=== PATIENT | male | born 1955 | race Caucasian/White ===

== ENCOUNTER 2023-06-09 13:57 | Emergency (ER) | payer MEDICARE, OTHER, SELFPAY ==
[2023-06-09 13:57] VITALS: BMI 26.6
[2023-06-09 14:02] VITALS: BP 114/72
[2023-06-09 14:42] VITALS: BP 113/79
[2023-06-09 14:44] VITALS: BP 113/79
[2023-06-09 15:00] VITALS: BP 110/77
[2023-06-09 15:06] LABS: % Basophils 0.6 % (0-2); % Eosinophils 1.9 % (0-6); % Immature Granulocytes 0.4 % (0-0.5); % Lymphocytes 16.8 % (20.5-51.1); % Monocytes 10.6 % (1.7-9.3); % Neutrophils 69.7 % (42.2-75.2); Absolute Basophils 0.1 10^3/uL (0-0.2); Absolute Eosinophils 0.2 10^3/uL (0-0.7); Absolute Lymphocytes 1.3 10^3/uL (1.2-3.4); Absolute Monocytes 0.8 10^3/uL (0.1-0.6); Absolute Neutrophils 5.5 10^3/uL (1.4-6.5); Hematocrit 40.4 % (39.0-52.0); Hemoglobin 13.5 g/dL (13.0-18.0); Mean Corp Hgb Conc. 33.4 g/dL (33.0-37.0); Mean Corpuscular Volume 83.6 fL (80.0-94.0); Mean Platelet Volume 8.9 fL (7.4-10.4); Nucleated Red Blood Cells % 0 % (-); Platelet Count 315 10^3/uL (130-400); Red Blood Cell Count 4.83 10^6/uL (4.70-6.10); White Blood Cell Count 7.9 10^3/uL (4.8-10.8)
[2023-06-09 15:15] LABS: INR 1.07; PT 13.7 Sec (11.4-14.6)
[2023-06-09 15:16] LABS: APTT 32.3 Sec (23.4-35.0)
[2023-06-09 15:19] LABS: D-Dimer < 0.27 ug/mlFEU (0.00-0.50)
--- NOTE | 2023-06-09 15:23 | ED.GENMED ---
History of Present Illness
General
Chief Complaint: Breathing Problem
Time Seen by Provider: 06/09/23 14:58
Travel History
Have you had any contact with someone who has COVID-19?: No
Do you have any symptoms of coronavirus? Fever > 100 degrees, chills, cough, shortness of breath, sore throat, loss of taste or smell, muscle aches, or headache?: No
History of Present Illness
History of Present Illness:
HPI: Patient presents with dyspnea, lightheadedness, concern for dehydration, and has not had any chest pain nor cough. He has history of DVT/PE and Eliquis dosing recently decreased from 10 to 5 mg twice daily. When he had a blood clot in 2019 he
did have lightheadedness and some similar symptoms and came in here for further evaluation. His symptoms started approximately 8 hours ago.
EXAM:
GENERAL: Well appearing in no distress
HEENT: Slightly dry oral mucosa
CARDIOVASCULAR: No murmurs, normal heart rate and rhythm, No chest wall tenderness
PULMONARY: No respiratory distress, breath sounds are clear and equal
ABDOMEN: Soft with no peritoneal signs, no tenderness
NEUROLOGIC: Excellent strength all extremities, no coordination deficits
PSYCHIATRIC: Appropriate mental status, normal insight and judgement
EXTREMITIES: Nontender, no edema, moves all extremities equally
SKIN: No rash, no lesions
ED COURSE:
3:25 PM when I initially evaluated patient
NUMBER AND COMPLEXITY OF PROBLEMS ADDRESSED AT THE ENCOUNTER
� Chronic conditions affecting care: Has had PE in the past, had MIN in the past related to hypovolemic shock, emphysema is listed in his chart but patient denies this history�he states he smoked till 20 years ago and has a
[id number] history of smoking
� Acute Exacerbation and/or Progression of Chronic Illness: This is an acute problem
� Differential Diagnosis includes: PE, COPD CHF, pneumonia, pneumothorax, viral syndrome, bronchitis, dehydration
AMOUNT AND/OR COMPLEXITY OF DATA TO BE REVIEWED AND ANALYZED
� I performed an independent evaluation of and my interpretation is:
EKG: Sinus 94, normal axis, first-degree AV block, no significant change from 10/10/2020
CT:
X-rays: I personally reviewed x-ray, there may be some emphysematous type changes however there is no acute abnormality noted
Laboratory Studies: CBC unremarkable, D-dimer ordered from triage is less than 0.27, slightly low sodium at 130, creatinine is 1.6�she has had similar levels in the past, BMP normal
Other:
� Review of other/old records: CTAs of the chest from 2018 and 2020 were negative for PE; the patient was admitted here with hypovolemic shock in February 2019 and was found to have PE bilateral and January 2019 at [facility]
� Clinical information was obtained by an independent historian: None needed
� Prescriptions/Medications Considered but not given:
� Further testing considered but not performed:
RISK OF COMPLICATIONS AND/OR MORBIDITY OR MORTALITY OF PATIENT MANAGEMENT
� Social determinants of health affecting care: Lives at home
� Discussion with other providers:
� Escalation of care including admission/observation vs risk of discharge considered: As patient does report some concern for dehydration, will give IV fluids and patient was mildly hyponatremic along with some renal
insufficiency. Will also give a DuoNeb as there is questionable history of emphysema. On reassessment, the patient overall feels improved at 5:10 PM. He was able to get up off the stretcher without any difficulty. He feels comfortable going
home. I did inform him of the lab abnormalities. I encouraged him to follow-up with PMD. Dehydration may be a contributing factor and he tells me that he has not been drinking much over the last couple of days.
Past History
Past History
ED Past Medical History: GERD, HTN and Other (BPH, Insomnia, PE, DVT)
ED Past Surgical History: Appendectomy and Orthopedic (Dislocated ankle)
Social History
Tobacco: Non-smoker
Alcohol: Occasional
Personal:
Living: with family
Employment: Employed
Phy Exam
Physical Exam
Physical Exam:
See HPI
Scores
Heart Failure Risk
Heart Failure Risk Score: Not Applicable
Course
Orders/Labs/Results
Orders:
Orders
06/09/23 14:05
ECG [Electrocardiogram (*1)] Urgent
Reason for Study: Shortness of Breath
EKG- Treatment ONCE
06/09/23 14:49
Complete Blood Count/With Diff Urgent
Comprehensive Metabolic Panel Urgent
D-Dimer Urgent
NT-proBNP Urgent
Comment: PROBNP ADDED ON BY FLOOR 3:30PM 06-09-23
PTT Urgent
Prothrombin Time Urgent
Troponin I Urgent
06/09/23 15:31
Add On- LAB Urgent
Tests Added?: probnp
CR Chest - 2 Views Urgent
Comment:
Reason For Exam: sob
06/09/23 15:34
0.9% Sodium Chloride 1000 ml [Nss] 1,000 ml IV BOLUS
06/09/23 15:35
Ipratropium/Albuterol Sulfate [Duoneb] 3 ml INH R NOW ONE
Abnormal Lab Results
06/09/23
14:49
Absolute Monos (auto) 0.8 H 10^3/uL
(0.1-0.6)
Lymphocytes % 16.8 L %
(20.5-51.1)
Monocytes % 10.6 H %
(1.7-9.3)
Sodium 130 L mmol/L
(135-145)
BUN 21 H mg/dl
(9-20)
Creatinine 1.6 H mg/dL
(0.7-1.3)
Glucose 107 H mg/dl
(70-99)
06/09/23 14:49
06/09/23 14:49
Vital Signs
Initial and Last Documented VS:
Initial Vital Signs
Temp Pulse Resp BP Pulse Ox
98.2 F 96 20 114/72 99
06/09/23 14:02 06/09/23 14:02 06/09/23 14:02 06/09/23 14:02 06/09/23 14:02
Last Documented Vital Signs
Temp Pulse Resp BP Pulse Ox
98.2 F 84 20 110/77 100
06/09/23 14:02 06/09/23 16:00 06/09/23 16:00 06/09/23 15:00 06/09/23 15:45
*Critical Care Note
Total Time (30-74mins, 75-104mins- exclusive of procedures): Not Applicable
ED Attending Note
-
Portions of this chart may have been created with voice recognition software.� Occasional wrong word or��sound alike� substitutions may have occurred due to the inherent limitations of voice recognition software.
Discharge Plan
Departure
Patient Disposition: Home (Routine Discharge)
Date of Disposition: 06/09/23
Time of Disposition: 17:10
Patient with high blood pressure during this ER visit?: Yes
Discharge Problem:
Dehydration
Instructions: Dehydration, Adult ED
Prescriptions:
No Action
finasteride 5 MG tablet
5 mg PO QPM
esomeprazole magnesium [Nexium] 20 MG capsule,delayed release(DR/EC)
20 mg PO QPM
bupropion HCl 300 MG tablet extended release 24 hr
300 mg PO QPM
Eliquis 5 MG tablet
2.5 mg PO BID
meloxicam [Mobic] 15 mg Tablet
15 mg PO HS
Theragen Tablet
1 tab PO DAILY
dextroamphetamine-amphetamine [Adderall] 20 mg Tablet
20 mg PO DAILY
lisinopril 30 mg Tablet
30 mg PO QPM
rosuvastatin [Crestor] 10 mg Tablet
10 mg PO QPM
tamsulosin [Flomax] 0.4 mg capsule
0.4 mg PO QPM
Referrals:
Walker Fernandez, [Family Provider] -
Activity Restrictions/Additional Instructions:
Your sodium low at 130 and your creatinine was elevated at 1.6, the creatinine has been worse (higher) than this in the past and the most recent level was 1.4. Your sodium today has been below normal in the past. I would like you to follow with
your primary care doctor for reassessment. Cardiac evaluation was normal meaning no sign of heart attack, blood clots, or heart failure. Return here if worse.
Interventions
Interventions:
*Risk Screen - Suicide Last Done: 06/09/23 14:02
*General Assessment Last Done: 06/09/23 14:02
*Neglect/Abuse Screening Last Done: 06/09/23 14:02
*ED COVID-19 Vaccine History Last Done: 06/09/23 14:40
ED- Cardiac Assessment Last Done: 06/09/23 14:43
ED- Pulmonary Assessment Last Done: 06/09/23 14:43
[2023-06-09] MEDS: DUONEB 3 ML INH (15:41)
[2023-06-09] MEDS: NSS 1000 IV (15:44)
[2023-06-09 16:12] LABS: ALT (SGPT) 27 U/L (0-50); AST (SGOT) 29 U/L (17-59); Albumin 4.5 g/dl (3.5-5.0); Alkaline Phosphatase 72 U/L (38-126); Blood Urea Nitrogen 21 mg/dl (9-20); Calcium 10.1 mg/dl (8.4-10.2); Carbon Dioxide 24 mmol/L (22-30); Chloride 99 mmol/L (98-107); Estimated Creatinine Clearance 42 ml/min; Glucose 107 mg/dl (70-99); Potassium 4.9 mmol/L (3.5-5.1); Sodium 130 mmol/L (135-145); Total Bilirubin 0.9 mg/dl (0.2-1.3); Total Protein 7.7 g/dl (6.3-8.2); eGFR 46.93
[2023-06-09 16:22] LABS: NT-proBNP < 20.0 pg/ml; Troponin I < 0.012 ng/ml
[2023-06-09 17:02] VITALS: BP 121/87
== END 2023-06-09 17:43 | disposition home or self-care (01) ==
LOC: EMR 13:57
PROVIDERS: Emergency Medicine; EMERGENCY PHYSICIAN Emergency Medicine; FAMILY PHYSICIAN Internal Medicine
DX: E86.0 Dehydration (principal); K21.9 Gastro-esophageal reflux disease without esophagitis; I10 Essential (primary) hypertension; N40.0 Benign prostatic hyperplasia without lower urinary tract symptoms; G47.00 Insomnia, unspecified; E87.1 Hypo-osmolality and hyponatremia; Z86.711 Personal history of pulmonary embolism; Z86.718 Personal history of other venous thrombosis and embolism; Z90.49 Acquired absence of other specified parts of digestive tract
CPT/HCPCS: 99283; 94640; 96360; 71046; 80053; 83880; 84484; 85025; 85379; 85610; 85730; 93005

== ENCOUNTER → 2023-09-20 10:31 | Outpatient (REF) | payer MEDICARE, OTHER, SELFPAY | LOC: RCS 10:31 | PROVIDERS: ATTENDING PHYSICIAN Nurse Practitioner Family | DX: R06.02 Shortness of breath (principal) | CPT/HCPCS: 93017 ==

== ENCOUNTER 2024-12-26 03:56 | Emergency (ER) | payer MEDICARE, OTHER, SELFPAY ==
[2024-12-26] VITALS (7 sets, daily range): BP systolic 122–148; BP diastolic 78–98; BMI 23.8
--- NOTE | 2024-12-26 04:18 | ED.GENMED ---
History of Present Illness
<Frandy Pappas Jr., PA-C - Last Filed: 12/26/24 23:32>
General
Chief Complaint: Abdominal Pain
Source: patient
Exam Limitations: none
Time Seen by Provider: 12/26/24 04:04
Nursing documentation reviewed up to this point in time: agreed with
History of Present Illness
History of Present Illness:
69-year-old male with past medical history of previous DVT currently on Eliquis, hypertension presenting to the emergency department today with concerns of left lower quadrant abdominal start about 6 hours prior to arrival has been gradually
worsening. He denies any associated symptoms no nausea vomiting diarrhea constipation no fevers. He claims that he has had kidney stones in the past but this does not feel similar
Past History
<Frandy Pappas Jr., PA-C - Last Filed: 12/26/24 23:32>
Past History
ED Past Medical History: GERD, HTN and Other (BPH, Insomnia, PE, DVT)
ED Past Surgical History: Appendectomy and Orthopedic (Dislocated ankle)
Social History
Tobacco: Non-smoker
Alcohol: Occasional
Personal:
Living: with family
Employment: Employed
Review of Systems
<Frandy Pappas Jr., PA-C - Last Filed: 12/26/24 23:32>
Review of Systems
Allergies reviewed?: Yes
All Other Systems: ROS reviewed and negative except as documented in HPI and ROS
Phy Exam
<Frandy Pappas Jr., PA-C - Last Filed: 12/26/24 23:32>
Physical Exam
Physical Exam:
GENERAL: Alert , in no apparent distress
EYE: pupils equal and reactive
NECK: Supple, no significant adenopathy.
ENT: o/p clr, mmm.
CARDIAC: Regular rate and rhythm .
LUNGS: Clear breath sounds bilaterally, no acute respiratory distress, no wheezes/rales/rhonchi
ABDOMEN: Left lower quadrant abdominal pain to palpation
NEUROLOGICAL: Alert and oriented, no focal neuro deficits
SKIN: Warm and dry, skin intact.
MUSCULOSKELETAL: No edema, well perfused.
PSYCH: Normal and appropriate interaction.
Course
<Frandy Pappas Jr., [place] - Last Filed: 12/26/24 23:32>
Orders/Labs/Results
Orders:
Orders
12/26/24 04:11
CT Abd/Pel (IV only)-[facility] only Urgent
Comment:
Reason For Exam: llq pain
Ketorolac [Toradol] 15 mg IV NOW STA
12/26/24 04:22
Complete Blood Count/With Diff Urgent
Comprehensive Metabolic Panel Urgent
12/26/24 04:23
Morphine Sulfate 4 mg IV NOW STA
12/26/24 05:04
Ondansetron Injectable [Zofran] 4 mg IV NOW STA
12/26/24 05:08
0.9% Sodium Chloride 1000 ml [Nss] 1,000 ml IV BOLUS
12/26/24 05:11
HYDROmorphone [Dilaudid] 0.5 mg IV NOW STA
12/26/24 05:49
HYDROmorphone [Dilaudid] 0.5 mg IV NOW STA
12/26/24 07:30
HYDROmorphone [Dilaudid] 1 mg IV NOW STA
12/26/24 08:37
Urinalysis Reflex To Culture Urgent
Date Specimen was Collected: 12/26/24
Time Specimen was Collected: 08:09
Urine Microscopic Reflex Cult Urgent
Abnormal Lab Results
12/26/24 12/26/24
04:22 08:37
RBC 4.60 L 10^6/uL
(4.70-6.10)
Hgb 12.9 L g/dL
(13.0-18.0)
MCHC 32.8 L g/dL
(33.0-37.0)
RDW 14.6 H %
(11.5-14.5)
Absolute Monos (auto) 0.9 H 10^3/uL
(0.1-0.6)
Monocytes % 12.4 H %
(1.7-9.3)
BUN 28 H mg/dl
(9-20)
Glucose 112 H mg/dl
(70-99)
Ur Occult Blood Reflex 4+ A
(Negative)
Urine RBC 21-25 A /HPF
(0-2)
Urine Bacteria (Reflex) Few A
(Negative)
Urine Albumin (Reflex) 2+ A
(Neg - Trace)
12/26/24 04:22
12/26/24 04:22
Vital Signs
Initial and Last Documented VS:
Initial Vital Signs
Temp Pulse Resp BP Pulse Ox
97.9 F 66 20 122/78 100
12/26/24 04:00 12/26/24 04:00 12/26/24 04:00 12/26/24 04:00 12/26/24 04:00
Last Documented Vital Signs
Temp Pulse Resp BP Pulse Ox
97.9 F 109 15 141/95 96
12/26/24 04:00 12/26/24 08:00 12/26/24 08:00 12/26/24 08:00 12/26/24 08:00
<Ledy Sanderson, DO - Last Filed: 12/26/24 05:27>
Orders/Labs/Results
Orders:
Orders
12/26/24 04:11
CT Abd/Pel (IV only)-[facility] only Urgent
Comment:
Reason For Exam: llq pain
Ketorolac [Toradol] 15 mg IV NOW STA
12/26/24 04:22
Complete Blood Count/With Diff Urgent
Comprehensive Metabolic Panel Urgent
12/26/24 04:23
Morphine Sulfate 4 mg IV NOW STA
12/26/24 05:04
Ondansetron Injectable [Zofran] 4 mg IV NOW STA
12/26/24 05:08
0.9% Sodium Chloride 1000 ml [Nss] 1,000 ml IV BOLUS
12/26/24 05:11
HYDROmorphone [Dilaudid] 0.5 mg IV NOW STA
12/26/24 05:49
HYDROmorphone [Dilaudid] 0.5 mg IV NOW STA
12/26/24 07:30
HYDROmorphone [Dilaudid] 1 mg IV NOW STA
12/26/24 08:37
Urinalysis Reflex To Culture Urgent
Date Specimen was Collected: 12/26/24
Time Specimen was Collected: 08:09
Urine Microscopic Reflex Cult Urgent
Abnormal Lab Results
12/26/24 12/26/24
04:22 08:37
RBC 4.60 L 10^6/uL
(4.70-6.10)
Hgb 12.9 L g/dL
(13.0-18.0)
MCHC 32.8 L g/dL
(33.0-37.0)
RDW 14.6 H %
(11.5-14.5)
Absolute Monos (auto) 0.9 H 10^3/uL
(0.1-0.6)
Monocytes % 12.4 H %
(1.7-9.3)
BUN 28 H mg/dl
(9-20)
Glucose 112 H mg/dl
(70-99)
Ur Occult Blood Reflex 4+ A
(Negative)
Urine RBC 21-25 A /HPF
(0-2)
Urine Bacteria (Reflex) Few A
(Negative)
Urine Albumin (Reflex) 2+ A
(Neg - Trace)
12/26/24 04:22
12/26/24 04:22
Vital Signs
Initial and Last Documented VS:
Initial Vital Signs
Temp Pulse Resp BP Pulse Ox
97.9 F 66 20 122/78 100
12/26/24 04:00 12/26/24 04:00 12/26/24 04:00 12/26/24 04:00 12/26/24 04:00
Last Documented Vital Signs
Temp Pulse Resp BP Pulse Ox
97.9 F 109 15 141/95 96
12/26/24 04:00 12/26/24 08:00 12/26/24 08:00 12/26/24 08:00 12/26/24 08:00
<SHIRLEY Merlos - Last Filed: 12/26/24 08:55>
Orders/Labs/Results
Orders:
Orders
12/26/24 04:11
CT Abd/Pel (IV only)-[facility] only Urgent
Comment:
Reason For Exam: llq pain
Ketorolac [Toradol] 15 mg IV NOW STA
12/26/24 04:22
Complete Blood Count/With Diff Urgent
Comprehensive Metabolic Panel Urgent
12/26/24 04:23
Morphine Sulfate 4 mg IV NOW STA
12/26/24 05:04
Ondansetron Injectable [Zofran] 4 mg IV NOW STA
12/26/24 05:08
0.9% Sodium Chloride 1000 ml [Nss] 1,000 ml IV BOLUS
12/26/24 05:11
HYDROmorphone [Dilaudid] 0.5 mg IV NOW STA
12/26/24 05:49
HYDROmorphone [Dilaudid] 0.5 mg IV NOW STA
12/26/24 07:30
HYDROmorphone [Dilaudid] 1 mg IV NOW STA
12/26/24 08:37
Urinalysis Reflex To Culture Urgent
Date Specimen was Collected: 12/26/24
Time Specimen was Collected: 08:09
Urine Microscopic Reflex Cult Urgent
Abnormal Lab Results
12/26/24 12/26/24
04:22 08:37
RBC 4.60 L 10^6/uL
(4.70-6.10)
Hgb 12.9 L g/dL
(13.0-18.0)
MCHC 32.8 L g/dL
(33.0-37.0)
RDW 14.6 H %
(11.5-14.5)
Absolute Monos (auto) 0.9 H 10^3/uL
(0.1-0.6)
Monocytes % 12.4 H %
(1.7-9.3)
BUN 28 H mg/dl
(9-20)
Glucose 112 H mg/dl
(70-99)
Ur Occult Blood Reflex 4+ A
(Negative)
Urine RBC 21-25 A /HPF
(0-2)
Urine Bacteria (Reflex) Few A
(Negative)
Urine Albumin (Reflex) 2+ A
(Neg - Trace)
12/26/24 04:22
12/26/24 04:22
Vital Signs
Initial and Last Documented VS:
Initial Vital Signs
Temp Pulse Resp BP Pulse Ox
97.9 F 66 20 122/78 100
12/26/24 04:00 12/26/24 04:00 12/26/24 04:00 12/26/24 04:00 12/26/24 04:00
Last Documented Vital Signs
Temp Pulse Resp BP Pulse Ox
97.9 F 109 15 141/95 96
12/26/24 04:00 12/26/24 08:00 12/26/24 08:00 12/26/24 08:00 12/26/24 08:00
<Frandy Pappas Jr., PA-C - Last Filed: 12/26/24 23:32>
MDM/Problems Addressed
MDM/Problems Addressed:
69-year-old male presenting to the emergency department today with concerns of left lower quadrant abdominal pain gradually worsening over the past few hours. Here is reproducible. Plan for CT scan for further assessment. CT scan showing mild
left hydro with a 8 mm stone at the left UVJ.
<Frandy Pappas Jr., PA-C - Last Filed: 12/26/24 23:32>
*Pulse Oximetry
SaO2: 100
<SHIRLEY Merlos - Last Filed: 12/26/24 08:55>
*Pulse Oximetry
Patient hypoxic: no (pulse ox 96 % RA )
*Critical Care Note
Total Time (30-74mins, 75-104mins- exclusive of procedures): Not Applicable
<SHIRLEY Merlos - Last Filed: 12/26/24 08:55>
Update Note
Update Note:
Received signout on patient. Patient still uncomfortable despite receiving pain medicines here. As reviewed on [facility] report he does have an 8 mm stone lodged at the left UVJ. Will discuss with urology.
0800: Urology DR Merlin burkett pt. Pt is already on Flomax . pt would like to try to go home. He is on Eliquis and therefore cannot take NSAIDs narcotic prescription was previously sent by previous provider.
0853: Patient is feeling completely resolved. He feels that he may have passed it into his bladder. He has Flomax at home and his prescription is at the pharmacy waiting for him discussed for him the importance of stone collection and outpatient
urology follow-up
ED Attending Note
<Frandy Pappas Jr., PA-C - Last Filed: 12/26/24 23:32>
-
Portions of this chart may have been created with voice recognition software.� Occasional wrong word or��sound alike� substitutions may have occurred due to the inherent limitations of voice recognition software.
<Ledy Sanderson DO - Last Filed: 12/26/24 05:27>
ED Attending Note
Patient seen and examined by attending physician: Yes
I performed a history and physical exam of patient and discussed management with resident, I reviewed resident's note and agree with documented findings and plan of care.: Yes
ED Attending Note:
69-year-old gentleman with prior history of DVT/PE, chronically maintained on Eliquis, history of GERD, BPH, ADD. He also has history of kidney stones having passed the left ureteric stone in 2021. Presents with left lower quadrant pain and nausea
that began last night, persistent throughout the night. Is unsure if current pain feels similar to previous episode of kidney stone.
He has not had a fever and or chills, no diarrhea or constipation.
69-year-old gentleman appears his stated age, awake and alert, appears mildly uncomfortable. Afebrile.
Abdomen is soft without appreciable tenderness.
CAT scan shows a large stone wedged at the LBJ and protrudes into the bladder with mild hydronephrosis.
Currently much more comfortable but continues with mild left lower quadrant pain. Will continue IV pain medication, IV fluid and continue to observe.
Labs are unremarkable. Creatinine of 1.2. Improved from previous. Appears to be his baseline.
Awaiting urinalysis.
Discharge Plan
Departure
Patient Disposition: Home (Routine Discharge)
Date of Disposition: 12/26/24
Time of Disposition: 08:54
Patient with high blood pressure during this ER visit?: No
Condition: Good
Covid-19: Not Applicable
Discharge Problem:
Calculus, ureteral
Instructions: Kidney Stones (DC)
Prescriptions:
New
oxycodone-acetaminophen [Percocet] 5-325 mg tablet
1 tab PO Q8H PRN (Reason: Pain) Qty: 10 0RF
ondansetron 4 mg tablet,disintegrating
4 mg PO Q6H PRN (Reason: nausea and vomiting) Qty: 7 0RF
No Action
finasteride 5 MG tablet
5 mg PO QPM
esomeprazole magnesium [Nexium] 20 MG capsule,delayed release(DR/EC)
20 mg PO QPM
bupropion HCl 300 MG tablet extended release 24 hr
300 mg PO QPM
Eliquis 5 MG tablet
2.5 mg PO BID
meloxicam [Mobic] 15 mg Tablet
15 mg PO HS
Theragen Tablet
1 tab PO DAILY
dextroamphetamine-amphetamine [Adderall] 20 mg Tablet
20 mg PO DAILY
lisinopril 30 mg Tablet
30 mg PO QPM
rosuvastatin [Crestor] 10 mg Tablet
10 mg PO QPM
tamsulosin [Flomax] 0.4 mg capsule
0.4 mg PO QPM
Referrals:
Pedro Luis Boyer MD [Active, Urology] - Follow up in 5-7 days
Activity Restrictions/Additional Instructions:
You came to the emergency department today for concerns of a kidney stone. Please take the medications to help with symptoms and otherwise follow-up closely with urology. Strain all urine
return for any worsening, new or concerning symptoms.
Interventions
Interventions:
*Risk Screen - Suicide Last Done: 12/26/24 04:00
*General Assessment Last Done: 12/26/24 04:12
*Neglect/Abuse Screening Last Done: 12/26/24 04:00
*ED- Fall Risk Assessment Last Done: 12/26/24 04:12
*ED COVID-19 Vaccine History Last Done: 12/26/24 04:12
*Nursing Disposition Last Done: 12/26/24 09:16
[id number] Assessment Last Done: 12/26/24 06:53
Discharge Date and Time
Discharge Date/Time: 12/26/24 09:17
Print Language: FRISIAN
[2024-12-26] MEDS: MORPHINE SULFATE 4 MG IV (04:26)
[2024-12-26 04:29] LABS: Hematocrit 39.3 % (39.0-52.0); Hemoglobin 12.9 g/dL (13.0-18.0); Mean Corp Hgb Conc. 32.8 g/dL (33.0-37.0); Mean Corpuscular Volume 85.4 fL (80.0-94.0); Nucleated Red Blood Cells % 0 % (-); Platelet Count 301 10^3/uL (130-400); Red Cell Dist. Width 14.6 % (11.5-14.5)
[2024-12-26 04:41] LABS: ALT (SGPT) 24 U/L (0-50); AST (SGOT) 22 U/L (17-59); Albumin 4.2 g/dl (3.5-5.0); Alkaline Phosphatase 68 U/L (38-126); Blood Urea Nitrogen 28 mg/dl (9-20); Calcium 9.6 mg/dl (8.4-10.2); Carbon Dioxide 28 mmol/L (22-30); Chloride 105 mmol/L (98-107); Estimated Creatinine Clearance 59 ml/min; Glucose 112 mg/dl (70-99); Potassium 4.5 mmol/L (3.5-5.1); Sodium 139 mmol/L (135-145); Total Protein 7.1 g/dl (6.3-8.2); eGFR > 60.00
[2024-12-26] MEDS: ZOFRAN 4 MG IV (05:08)
[2024-12-26] MEDS: NSS 1000 IV (05:10)
[2024-12-26] MEDS: DILAUDID 0.5 MG IV ×2 (05:13→05:53)
[2024-12-26] MEDS: DILAUDID 1 MG IV (07:39)
[2024-12-26 09:16] LABS: Urine Character Clear (Clear)
[2024-12-26 09:25] LABS: Urine Red Blood Cell 21-25 /HPF (0-2); Urine Squamous Cell 0-2 /LPF (Few); Urine White Cell 0-2 /HPF (0-5)
== END 2024-12-26 09:17 | disposition home or self-care (01) ==
LOC: EMR 03:56
PROVIDERS: Physician Assistant; EMERGENCY PHYSICIAN Emergency Medicine; FAMILY PHYSICIAN Internal Medicine
DX: N13.2 Hydronephrosis with renal and ureteral calculous obstruction (principal); I10 Essential (primary) hypertension; K21.9 Gastro-esophageal reflux disease without esophagitis; N40.0 Benign prostatic hyperplasia without lower urinary tract symptoms; Z87.442 Personal history of urinary calculi; Z79.01 Long term (current) use of anticoagulants; Z86.718 Personal history of other venous thrombosis and embolism; Z86.711 Personal history of pulmonary embolism
CPT/HCPCS: 99284; 96374; 96375 ×2; 96376 ×2; 96361; 74177; 80053; 81003; 81015; 85025; Q9967